=== PATIENT | male | born 1990 | race African-American/Black ===

== ENCOUNTER 2020-02-14 09:48 | Emergency (ER) | payer OTHER ==
[~2020-02-14] VITALS: Ht 172.7 cm; Wt 58.6 kg
[2020-02-14 09:49] VITALS: BP 136/84
== END 2020-02-14 10:22 | disposition home or self-care (01) ==
LOC: M ED 09:48
DX: Z00.00 Encounter for general adult medical examination without abnormal findings (principal)

== ENCOUNTER → 2021-03-13 | Outpatient (REF) | payer OTHER ==
[2021-03-13 12:13] LABS: APPEARANCE, URINE CLOUDY (CLEAR); BACTERIA, URINE AUTO 2+ (NEGATIVE); BILIRUBIN, URINE AUTO NEGATIVE (NEGATIVE); BLOOD, URINE BLOOD 1+ (NEGATIVE); COLOR, URINE YELLOW (YELLOW); GLUCOSE, URINE (UA) AUTO NEGATIVE (NEGATIVE); KETONE, URINE AUTO NEGATIVE (NEGATIVE); LEUKOCYTE ESTERASE, URINE AUTO NEGATIVE (NEGATIVE); MUCUS, URINE SMALL (NEGATIVE); NITRITE, URINE AUTO NEGATIVE (NEGATIVE); PROTEIN, URINE AUTO 1+ mg/dL (NEGATIVE); RBC, URINE AUTO 4 /HPF (0-3); SQUAMOUS EPITHELIAL CELL UR AU 0 /HPF (0-6); UROBILINOGEN, URINE AUTO 0.2 mg/dL (0.0-2.0); WBC, URINE AUTO 2 /HPF (0-3)
[2021-03-13 12:16] LABS: BASO % 0.9 % (0.0-1.0); EOS # 0.2 10^3/uL (0.0-0.5); EOS % 4.1 % (0.0-3.0); HEMATOCRIT 44.3 % (42.0-52.0); HEMOGLOBIN 14.7 g/dl (13.5-17.5); LYMPH # 1.9 10^3/uL (1.5-5.0); LYMPH % 42.8 % (24.0-44.0); MEAN CORPUSCULAR HEMOGLOBIN 29.5 pg (27.0-33.0); MEAN CORPUSCULAR HGB CONC 33.2 g/dl (32.0-36.5); MEAN CORPUSCULAR VOLUME 88.8 fl (80.0-96.0); MONO # 0.4 10^3/uL (0.0-0.8); MONO % 8.2 % (2.0-8.0); NEUTROPHILS # 1.9 10^3/uL (1.5-8.5); PLATELET COUNT, AUTOMATED 229 10^3/uL (150-450); RED BLOOD COUNT 4.99 10^6/uL (4.30-6.10); WHITE BLOOD COUNT 4.4 10^3/uL (4.0-10.0)
[2021-03-13 15:27] LABS: HEMOGLOBIN A1c 5.2 %
[2021-03-13 17:18] LABS: ALT/SGPT 33 U/L (12-78); BLOOD UREA NITROGEN 11 MG/DL (7-18); CALCIUM LEVEL 9.6 MG/DL (8.5-10.1); CARBON DIOXIDE LEVEL 29 MEQ/L (21-32); CHLORIDE LEVEL 105 MEQ/L (98-107); CREATININE FOR GFR 0.98 MG/DL (0.70-1.30); GLOMERULAR FILTRATION RATE > 60.0 (>60); GLUCOSE, FASTING 82 MG/DL (70-100); POTASSIUM SERUM 3.8 MEQ/L (3.5-5.1); SODIUM LEVEL 140 MEQ/L (136-145)
[2021-03-13 17:19] LABS: ALBUMIN 4.1 GM/DL (3.2-5.2); BILIRUBIN,TOTAL 0.8 MG/DL (0.2-1.0); CHOLESTEROL LEVEL 204 MG/DL (<200); CHOLESTEROL RISK RATIO 2.649 (<5); FERRITIN 37 NG/ML (26-388); FREE T4 0.95 NG/DL (0.76-1.46); HDL CHOLESTEROL 77 MG/DL (>40); IRON (FE) 132 UG/DL (65-175); LDL CHOLESTEROL 115 MG/DL (<100); NON-HDL-C 127 MG/DL; PERCENT SATURATION 43.7 % (19.7-50.0); THYROID STIMULATING HORMONE 0.494 uIU/ML (0.358-3.740); TOTAL IRON BINDING CAPACITY 302 UG/DL (250-450); TOTAL PROTEIN 7.5 GM/DL (6.4-8.2); TRIGLYCERIDES LEVEL 61 MG/DL (<150)
[2021-03-13 17:20] LABS: VITAMIN B12 LEVEL 972 PG/ML
[2021-03-13 17:30] LABS: HEPATITIS B SURFACE ANTIGEN NEGATIVE (NEGATIVE)
[2021-03-13 17:36] LABS: FOLATE 8.9 NG/ML; TOTAL 25(OH) VITAMIN D 8.1 NG/ML (30.0-100.0)
[2021-03-13 17:57] LABS: HEPATITIS B CORE ANTIBODY IGM NEGATIVE (NEGATIVE); HEPATITIS C VIRUS ABY INDEX 0.1 INDEX (<0.8)
[2021-03-13 17:59] LABS: HEPATITIS A ANTIBODY IGM NEGATIVE (NEGATIVE); HIV 1&2 SCREEN CENTAUR NEGATIVE (NEGATIVE)
== END ==
LOC: M LAB REF 11:39
PROVIDERS: ATTEND Nurse Practitioner Family
DX: Z00.00 Encounter for general adult medical examination without abnormal findings (principal); Z13.228 Encounter for screening for other metabolic disorders; Z13.29 Encounter for screening for other suspected endocrine disorder; R21 Rash and other nonspecific skin eruption

== ENCOUNTER 2023-03-27 12:39 | Emergency (ER) | payer BC, OTHER ==
[~2023-03-27] VITALS: Ht 172.7 cm; Wt 145.0 kg
[2023-03-27 13:04] LABS: BASO # 0.1 10^3/uL (0.0-0.2); EOS # 0.1 10^3/uL (0.0-0.5); HEMATOCRIT 41.4 % (42.0-52.0); HEMOGLOBIN 13.9 g/dl (13.5-17.5); LYMPH # 1.9 10^3/uL (1.5-5.0); LYMPH % 38.1 % (24.0-44.0); MEAN CORPUSCULAR HEMOGLOBIN 29.8 pg (27.0-33.0); MEAN CORPUSCULAR HGB CONC 33.6 g/dl (32.0-36.5); MEAN CORPUSCULAR VOLUME 88.8 fl (80.0-96.0); MONO # 0.4 10^3/uL (0.0-0.8); MONO % 6.9 % (2.0-8.0); NEUTROPHILS # 2.6 10^3/uL (1.5-8.5); NEUTROPHILS % 51.8 % (36.0-66.0); PLATELET COUNT, AUTOMATED 254 10^3/uL (150-450); RED BLOOD COUNT 4.66 10^6/uL (4.30-6.10); WHITE BLOOD COUNT 5.1 10^3/uL (4.0-10.0)
[2023-03-27 13:29] LABS: CK-MB VALUE MASS 1.4 NG/ML (<3.6); LIPASE 37 U/L (12-53)
[2023-03-27 13:31] LABS: ALBUMIN 4.3 G/DL (3.2-5.2); ALKALINE PHOSPHATASE 40 U/L (46-116); ALT/SGPT 49 U/L (7.0-40); AST/SGOT 43 U/L (<34); BILIRUBIN,DIRECT 0.2 MG/DL (<0.4); BILIRUBIN,TOTAL 0.5 MG/DL (0.3-1.2); BLOOD UREA NITROGEN 11 MG/DL (9-23); CALCIUM LEVEL 9.2 MG/DL (8.5-10.1); CARBON DIOXIDE LEVEL 28 MMOL/L (20-31); CHLORIDE LEVEL 105 MMOL/L (98-107); GLOMERULAR FILTRATION RATE > 60.0 (>60); GLUCOSE, FASTING 86 MG/DL (60-100); SODIUM LEVEL 140 MMOL/L (136-145); TOTAL PROTEIN 7.3 G/DL (5.7-8.2)
[2023-03-27 13:39] LABS: RSV AMPLIFICATION NEGATIVE (NEGATIVE)
[2023-03-27 13:57] LABS: CPK CREATINE PHOSPHOKINASE 2118 U/L (46-171); MB/CK RELATIVE INDEX 0.06 (< OR =4)
[2023-03-27] MEDS ORDERED: KETOROLAC 30 MG/ML 1ML VIAL IV ONE (14:05)
[2023-03-27] MEDS ORDERED: NS 1,000 ML IV ONE (14:05)
[2023-03-27 14:46] LABS: CK-MB VALUE MASS 1.2 NG/ML (<3.6)
[2023-03-27 15:05] LABS: CPK CREATINE PHOSPHOKINASE 1997 U/L (46-171); MB/CK RELATIVE INDEX 0.06 (< OR =4)
[2023-03-27] MEDS ORDERED: IPRATROPIUM 0.5MG/ALBUTEROL 2.5MG INH SOL UD 3ML (DUONEB) NEB ONE (15:25)
[2023-03-27] MEDS ORDERED: methylPREDNISolone 125MG 2ML VIAL IV ONE (15:25)
[2023-03-27 16:00] VITALS: BP 126/67
[2023-03-27] MEDS ORDERED: KETO10TAB PO (16:21)
== END 2023-03-27 16:33 | disposition home or self-care (01) ==
LOC: EDBD 12:39 → M ED 12:39
DX: M62.82 Rhabdomyolysis (principal); M94.0 Chondrocostal junction syndrome [Tietze]; J45.909 Unspecified asthma, uncomplicated
CPT/HCPCS: 71045; 80048; 80076; 82550; 82553; 83690; 84484; 85025; 85379; 87631; 93005; 93041; 94640; 94760; 96361; 96374; 96375; 99285; J1885; J2930